=== PATIENT | male | born 1960 | race Caucasian/White ===

== ENCOUNTER 2024-06-15 04:43 | Day surgery (SDC) | payer OTHER ==
[2024-06-13 12:32] VITALS: BMI 26.6
[2024-06-15 09:39] VITALS: TEMP 98
[2024-06-15 10:09] VITALS: BP 101/67; PULSE 64; RESP 16
== END 2024-06-15 10:12 | disposition home or self-care (01) ==
LOC: JASU-ENDO 04:43
PROVIDERS: ATTEND Internal Medicine Gastroenterology
PROC: 0DJD8ZZ Inspection of Lower Intestinal Tract, Via Natural or Artificial Opening Endoscopic (ICD-10-PCS; principal; 2024-06-15 08:30)
DX: Z12.11 Encounter for screening for malignant neoplasm of colon (principal); D12.2 Benign neoplasm of ascending colon; Z86.0100 Personal history of colon polyps, unspecified